=== PATIENT | female | born 1970 | race Caucasian/White ===

== ENCOUNTER → 2017-01-23 | Outpatient (CLI) | payer OTHER | LOC: FIMAGING 14:26 | PROVIDERS: ATTEND Family Medicine | DX: R05 Cough (principal) ==

== ENCOUNTER 2017-08-15 10:55 | Emergency (ER) | payer OTHER ==
--- NOTE | 2017-08-15 11:11 | EDPHY ---
H & P Stated Complaint: Tripped and fell; R knee,L hand pain w/abrasion; ambulatory - Personal History LMP (Females 10-55): Post Menopausal Current Tetanus Diphtheria and Acellular Pertussis (TDAP): Yes - Social History Smoking Status: Never smoked Time Seen by Provider: 08/15/17 11:11 Constitutional: Initial Vital Signs Heart Rate 67 08/15/17 10:56 Respiratory Rate 16 08/15/17 10:56 Blood Pressure 107/81 H 08/15/17 10:56 O2 Sat (%) 97 08/15/17 10:56 O2 Delivery Mode Room Air Allergies/Adverse Reactions: No Known Allergies Allergy (Unverified 08/15/17 10:58) Home Medications: Medication Instructions Recorded NK [No Known Home Meds] 08/15/17 Medical Decision Making - Diagnostics Imaging: Discussed imaging studies w/ inbound call center agent Radiologist, I viewed and interpreted images myself - Diagnostics Imaging Results: Imaging Impressions Knee X-Ray 08/15/17 11:36 Impression: 1. No evidence of acute injury. 2. Possible 2 mm intra-articular loose body. 3. Small suprapatellar effusion. Procedures: My involvement the care this patient is solely for procedure. Please see the note of the attending physician for all other aspects of care. I was asked to evaluate the patient's wound by the RN. She does have an abrasion to the left palm that may have some debris in it. I have administered a local anesthetic for them to describe/debride the wound. PROCEDURE: Wound anesthesia, local injection Consent: Verbal Location: Left palm of hand Complexity: Simple Layer involvement: Single Anesthesia: 1% lidocaine plain, 3 mL. 0.5% Marcaine, 3 mL Irrigation: Extensive (Brock Fink) ED Course/Re-evaluation: CHIEF COMPLAINT: Right knee and left hand pain secondary to fall HISTORY OF PRESENT ILLNESS: The patient is a 46 y/o female complaining of right knee and left hand pain secondary to tripping and falling today. She tripped on a curve and landed first on her right knee and then on her left hand and right hip. There are abrasions to her right knee and left hand. Denies right hip pain. Denies pain while walking or sitting. However, she does have pain while walking stairs or standing from a sitting position. No chest pain, abdominal pain, urinary or bowel complaints, fever, headache. REVIEW OF SYSTEMS: A 10 point review of systems was performed and is negative with the exception of the elements mentioned in the history of present illness. PHYSICAL EXAM: HR, BP, O2 Sat, RR. Temp noted General Appearance: Alert, well hydrated, appropriate, and non-toxic appearing. Head: Atraumatic without scalp tenderness or obvious injury Eyes: Pupils equal, round, reactive to light and accommodation, EOMI, no trauma , no injection. Ears: Clear bilaterally, no perforation, normal landmarks Nose: Atraumatic, no rhinorrhea, clear. Throat: Mucus membranes moist. Neck: Supple, nontender, no lymphadenopathy. Respiratory: No retractions, no distress, no wheezes, and no accessory muscle use. Lungs are clear to auscultation bilaterally. Cardiovascular: Regular rate and rhythm, no murmurs, rubs, or gallops. Good capillary refill all extremities. Gastrointestinal: Abdomen is soft, nontender, non-distended, no masses, no rebound, no guarding, no peritoneal signs. Musculoskeletal: Right knee abrasion and contusion. Left hand abrasion and contusion to palm. Normal active ROM of all extremities, atraumatic. Neurological: Alert, appropriate, and interactive. Non-focal neuro. Skin: No rashes, good turgor, no nodules on palpation. Past medical history: Denies Past surgical history: Right ACL and meniscus repair (2001) Family history: Denies Social history: Friends at bedside, lives in [place], employed at [employer] DIAGNOSTICS/PROCEDURES/CRITICAL CARE TIME: Right knee x-ray: No acute findings. There is an incidental finding of an interarticular foreign body that is not acure Left hand x-ray: No acute findings. DIFFERENTIAL DIAGNOSIS: The differential diagnosis for the patient's knee and hand injury included but was not limited to abrasion, fracture, ligamentous injury, contusion, muscular strain, and meniscus injury. MEDICAL DECISION MAKING: The patient is a 46 y/o female presenting with a right knee and left palm abrasion and contusion secondary to tripping on a curve today. Right knee and left hand x-ray. 800mg PO Motrin administered. 1211: Spoke with Dr. Rivera, radiologist, regarding this patient's x-rays. No acute findings. She will be placed in a knee immobilizer. 1217: Reassessed patient and discussed imaging findings. I have advised her to follow up with an orthopedic surgeon. Return precautions provided; patient is comfortable with this plan. (Pipe King) - Data Points Medications Given: Discontinued Medications Ibuprofen (Motrin) 800 mg PO EDNOW ONE Stop: 08/15/17 12:02 Last Admin: 08/15/17 12:45 Dose: 800 mg Tetracaine/Epinephrine/Lidocaine (Let Gel Topical) 1 ea TP EDNOW ONE Stop: 08/15/17 11:20 Last Admin: 08/15/17 11:25 Dose: 1 ea Departure - Departure Disposition: Home, Routine, Self-Care Clinical Impression: Abrasion Contusion of knee, right Qualifiers: Encounter type: initial encounter Qualified Code(s): S80.01XA - Contusion of right knee, initial encounter Contusion of left hand Qualifiers: Encounter type: initial encounter Qualified Code(s): S60.222A - Contusion of left hand, initial encounter Instructions: Contusion in Adults (ED), Abrasion (ED), Knee Pain (ED) Additional Instructions: 1. Rest, ice, elevation. 2. Follow up with an orthopedic surgeon within one week. 3. Return to the emergency department for worsening pain, swelling, numbness, weakness or other concerns. 4. Wear knee immobilizer at all times until reevaluation, but okay to shower and sleep without splint. 5. Use ibuprofen in addition to prescribed pain medication as directed for pain. Referrals: EDGARD SALAZAR [Primary Care Provider] - As per Instructions Manuel Zheng MD [Medical Doctor] - As per Instructions Report Scribed for: Pipe King Report Scribed by: Sanam Arreola Date of Report: 08/15/17 Time of Report: 11:13
[2017-08-15] MEDS ORDERED: LET GEL TOPICAL 1 EA SYR TP ONE (11:19)
[2017-08-15] MEDS ORDERED: IBUPROFEN 800 MG TAB PO ONE (12:01)
[2017-08-15 13:23] VITALS: BP 134/78; PULSE 87; RESP 19; TEMP 98.1; O2SAT 96
== END 2017-08-15 13:33 | disposition home or self-care (01) ==
LOC: EEVIPCON 10:55
DX: S80.01XA Contusion of right knee, initial encounter (principal); S60.222A Contusion of left hand, initial encounter; S80.211A Abrasion, right knee, initial encounter; S60.512A Abrasion of left hand, initial encounter; W01.0XXA Fall on same level from slipping, tripping and stumbling without subsequent striking against object, initial encounter

== ENCOUNTER → 2018-10-25 | Outpatient (CLI) | payer OTHER | LOC: CIMAGING 08:12 ==